=== PATIENT | male | born 1950 | race Caucasian/White ===

== ENCOUNTER 2023-03-03 07:59 | Inpatient (IN) | payer MEDICARE, OTHER, SELFPAY ==
[2023-03-03] VITALS (28 sets, daily range): BP systolic 75–144; BP diastolic 48–95; PULSE 74–118; RESP 15–26; TEMP 36.8–36.9; O2SAT 90–98; BMI 35.9; BMI 41.1
--- NOTE | 2023-03-03 08:03 | HMH.EDGENADL ---
Discharge Plan Disposition Chief Complaint: PAIN Prescriptions Prescriptions: No Action carvedilol [Coreg] 12.5 mg Tablet 12.5 mg PO BID Rx Instructions: must administer with a meal/food trazodone 50 mg Tablet 50 mg PO HS spironolactone 25 mg Tablet 25 mg PO DAILY glipizide 2.5 mg Tablet Extended Release 24hr 2.5 mg PO DAILY aspirin 81 mg Tablet,Chewable 81 mg PO DAILY rosuvastatin [Crestor] 40 mg Tablet 40 mg PO DAILY Eliquis 5 mg Tablet 5 mg PO BID Jardiance 10 mg Tablet 10 mg PO DAILY Entresto 97-103 mg Tablet 1 tab PO BID tramadol 100 mg Tablet 100 mg PO HS Referrals Follow up/Referrals: Kellie Khalil MD [Primary Care Provider] - See instructions Clinical Impressions Clinical Impression: Acute pyelonephritis, Left nephrolithiasis Sepsis Qualifiers: Sepsis type: sepsis due to unspecified organism Sepsis acute organ dysfunction status: without acute organ dysfunction Qualified Code(s): A41.9 - Sepsis, unspecified organism Discharge ED Provider: Torito Knight General Adult HPI General Chief complaint: PAIN Stated complaint: blood in urine Time Seen by Provider: 03/03/23 08:01 History of Present Illness HPI narrative: 72-year-old male with history of chronic pain on narcotics, CAD, CHF, A-fib on Eliquis, nephrolithiasis status post lithotripsy. Started around 1030 last night, 03/02. Associated with dysuria, abdominal pain, left-sided flank pain. No fevers or chills, nausea or vomiting. Patient shortly thereafter went to the restroom and noticed there was red blood in the urine. Feels as if he has been urinating more often than usual as well. Pain is mild, does not radiate. Related Data Home Medications Medication Instructions Recorded Confirmed apixaban 5 mg tablet (Eliquis) 5 mg PO BID afib 03/03/23 03/03/23 aspirin 81 mg chewable tablet 81 mg PO DAILY 03/03/23 03/03/23 carvedilol 12.5 mg tablet (Coreg) 12.5 mg PO BID 03/03/23 03/03/23 empagliflozin 10 mg tablet 10 mg PO DAILY 03/03/23 03/03/23 (Jardiance) glipizide 2.5 mg tablet, extended 2.5 mg PO DAILY 03/03/23 03/03/23 release 24 hr rosuvastatin 40 mg tablet (Crestor) 40 mg PO DAILY 03/03/23 03/03/23 sacubitril 97 mg-valsartan 103 mg 1 tab PO BID 03/03/23 03/03/23 tablet (Entresto) spironolactone 25 mg tablet 25 mg PO DAILY 03/03/23 03/03/23 tramadol 100 mg tablet 100 mg PO HS 03/03/23 03/03/23 trazodone 50 mg tablet 50 mg PO HS 03/03/23 03/03/23 Allergies Allergy/AdvReac Type Severity Reaction Status Date / Time oxycodone [From OxyContin] Allergy Verified 03/03/23 08:17 From LORTAB Allergy Unknown Uncoded 05/04/17 14:26 From PERCOCET Allergy Unknown Uncoded 05/04/17 14:26 PFSH [facility] Disclaimer: The information contained in this section may have been updated after the patient was seen, as this information can be updated by other users. Social History Smoking Status: Never smoker alcohol intake: never current occupational status: unemployed Travel in the last 8 weeks: None ROS Obtained: Yes All systems reviewed & no additional complaints except as documented Physical Exam General General appearance: alert and in no apparent distress Head Head exam: atraumatic and normocephalic Eye Eye exam: Present normal appearance, PERRL and EOMI ENT ENT exam: Present mucous membranes moist Neck Neck exam: Present normal inspection, full ROM and trachea midline Respiratory Respiratory exam: Absent respiratory distress, wheezes, stridor, accessory muscle use or prolonged expiratory phase Cardiovascular Cardiovascular exam: Present normal rhythm Abdominal Exam Abdominal exam: Present soft; Absent distention, tenderness, guarding, rebound, rigidity or normal bowel sounds Extremities Exam Extremities exam: Absent edema Neurological Exam Neurological exam: Present alert, oriented X3, CN II-XII intact and normal gait; Absent motor sensory deficit
--- NOTE | 2023-03-03 08:06 | PC.NURSE ---
pt is in room with family and staff at .
--- NOTE | 2023-03-03 08:12 | PC.NURSE ---
Dr. Knight at BS
[2023-03-03 08:16] LABS: Microscopic, Urine URINE MICROSCOPIC (MICROSCOPIC)
[2023-03-03 08:17] LABS: Bilirubin,Urine Negative (Negative); Blood, Urine 3+ (Negative); Glucose,Urine (UA) 3+ (Negative); Ketones,Urine 1+ (Negative); Leukocyte Esterase,Urine 2+ (Negative); Nitrate,Urine POSITIVE (Negative); PH,Urine 6.5 (5.0-8.5); Protein,Urine 3+ (Negative); Specific Gravity, Urine 1.015 (1.005-1.030)
[2023-03-03 08:30] LABS: Basophils % 0.2 % (0.1-2.0); Chloride 104 mmol/L (98-107); Eosinophils # 0.1 K/mm3 (0.0-0.4); Eosinophils % 0.4 % (0.1-12.0); Hemoglobin 17.7 g/dL (14.1-18.0); Lymphocytes # 1.2 K/mm3 (0.7-4.5); Lymphocytes % 6.9 % (10-50); Mean Corpuscular HGB Conc 33.4 g/dL (31.8-35.4); Mean Corpuscular Hemoglobin 30.9 pg (27.0-31.2); Mean Corpuscular Volume 92.6 fl (80-94); Mean Platelet Volume 8.2 fl (7.4-10.4); Monocytes # 1.1 K/mm3 (0.1-1.0); Monocytes % 6.6 % (1.7-9.3); Neutrophils # 14.9 K/mm3 (1.8-7.8); Platelet Count 236 K/mm3 (142-424); Red Blood Count 5.72 M/mm3 (4.60-6.20); Sodium 139 mmol/L (136-145); White Blood Count 17.3 K/mm3 (4.8-10.8)
[2023-03-03 08:31] LABS: Potassium 4.3 mmoL/L (3.5-5.1)
[2023-03-03 08:32] LABS: MANUAL DIFFERENTIAL MANUAL DIFFERENTIAL (MANUAL DIFF)
[2023-03-03 08:33] LABS: Alanine Aminotransferase 36 U/L (12-78); Albumin Level 4.2 g/dl (3.5-5.0); Albumin/Globulin Ratio 1.4 (1.1-1.8); Alkaline Phosphatase 60 U/L (38-126); Anion Gap 15.3 mEq/L (5-15); Aspartate Amino Transferase 35 U/L (17-59); Bilirubin,Total 0.9 mg/dl (0.2-1.3); Blood Urea Nitrogen 15 mg/dl (9-20); Carbon Dioxide 24 mmol/L (22.0-30.0); Creatinine Clearance Estimated 109 mL/min (50-200); Estimated Glomerular Filt Rate 74 ml/min (>60); GFR (African American) 89 ML/MIN (>60); Total Protein,Serum 7.2 g/dl (6.3-8.2)
[2023-03-03 08:34] LABS: Calcium 9.8 mg/dl (8.4-10.2); Glucose 197 mg/dl (74-100)
[2023-03-03 08:48] LABS: RBC,Urine TNTC #/hpf (0-3)
[2023-03-03 08:49] LABS: Bacteria,Urine 1+ /lpf
[2023-03-03 08:56] LABS: Lymphocytes % 6 % (10-50); Monocytes % 7 % (2-9); Neutrophils % 87 % (42-76); Total Cells Counted 100
[2023-03-03 08:58] LABS: Lipase 32 U/L (23-300)
[2023-03-03 08:59] LABS: Platelet Estimate Normal; RBC Morphology Normal
--- NOTE | 2023-03-03 08:59 | PC.NURSE ---
pt was given a cup of ice upon request. call light within reach. family at
[2023-03-03 09:11] LABS: Appearance,Urine Turbid (Clear); Color,Urine Amber (Yellow)
--- NOTE | 2023-03-03 09:22 | PC.NURSE ---
LR STOPPED WHY ROCEPHIN INFUSING
--- NOTE | 2023-03-03 09:39 | PC.NURSE ---
SEPSIS BOLUS RESTARTED
--- NOTE | 2023-03-03 10:04 | CT_ITS ---
FINAL REPORT TECHNIQUE: Axial images through the abdomen and pelvis were performed without contrast. This study was performed with techniques to keep radiation doses as low as reasonably achievable, (ALARA). Individualized dose reduction techniques using automated exposure control or adjustment of mA and/or kV according to the patient's size were employed. CLINICAL HISTORY: L stone suspected FINDINGS: ABDOMEN: There is atelectasis or scar in the lung bases. The heart size is normal. Limited images of the liver are unremarkable. The patient is status post cholecystectomy. The spleen is normal. No adrenal mass is identified. The aorta is normal in caliber. There is no significant free fluid or adenopathy. There is no nephrolithiasis. There is moderate left hydronephrosis and hydroureter secondary to a 14 mm mid left ureteral stone at the L4 level. PELVIS: The appendix is normal. There is bladder wall thickening, likely inflammatory. Small inguinal hernias containing fat are identified. There is no significant free fluid or adenopathy. IMPRESSION: Moderate left hydronephrosis and hydroureter secondary to a mid left ureteral stone. Reviewed, Interpreted and Dictated by Tereso Porter III, MD Transcribed by Alina Angel Authenticated and [facility]
--- NOTE | 2023-03-03 10:08 | PC.NURSE ---
pt to CT by wheelchair
--- NOTE | 2023-03-03 10:15 | PC.NURSE ---
pt back from CT
--- NOTE | 2023-03-03 10:31 | PC.NURSE ---
placed call to [facility] for urology for transfer.
--- NOTE | 2023-03-03 11:02 | PC.NURSE ---
declan from [facility] called. states [facility] does not have an icu bed currently but are wanting him to contact them back in 45 minutes after their huddle, may have a bed then. States he does also have a call out to [facility]- waiting on a call back. notified dr. gilman
--- NOTE | 2023-03-03 11:22 | PC.NURSE ---
Pt provided with sandwich and chips. No other needs voiced. Call light within reach.
--- NOTE | 2023-03-03 11:27 | PC.NURSE ---
pt sitting on the sit of bed with call light within reach.
--- NOTE | 2023-03-03 11:29 | PC.WOUNDNOTE ---
placed call to [facility] for urology, waiting for Dr Kennedy to call back
--- NOTE | 2023-03-03 11:44 | PC.NURSE ---
Dr Knight speaking with Dr Kennedy at [facility]
--- NOTE | 2023-03-03 11:45 | PC.NURSE ---
pt voided per urinal.
--- NOTE | 2023-03-03 12:16 | PC.NURSE ---
[facility]
--- NOTE | 2023-03-03 13:21 | PC.NURSE ---
pt voided per urinal. pt sitting up to chair with call light within reach. Ice water given upon request.
--- NOTE | 2023-03-03 13:38 | PC.NURSE ---
followed up with [facility], they have escalated to house sup and are waiting for discharges to give bed placement.
--- NOTE | 2023-03-03 13:40 | PC.NURSE ---
called for update on pt transfer,given a number for Dr Morrissey to call him directly
--- NOTE | 2023-03-03 14:16 | PC.NURSE ---
Dr Knight speaking with Dr Morrissey
--- NOTE | 2023-03-03 14:21 | PC.NURSE ---
Dr Morrissey will be out of town after today so unable to accept patient.
--- NOTE | 2023-03-03 14:26 | PC.NURSE ---
placed call to [facility], no available icu beds, will put pt on waiting list.
--- NOTE | 2023-03-03 14:35 | PC.NURSE ---
pt lights turned off per request and ice water was given. family at BS
--- NOTE | 2023-03-03 14:42 | PC.NURSE ---
called care management for admission
--- NOTE | 2023-03-03 15:12 | PC.NURSE ---
Attempted to call reports. Nurse unavailable at this time.
--- NOTE | 2023-03-03 15:21 | PC.NURSE ---
Report given to Agustina Judd RN on Med Surg.
--- NOTE | 2023-03-03 15:37 | PC.NURSE ---
arrived to floor from ED by stretcher
--- NOTE | 2023-03-03 16:34 | PC.NURSE ---
Addendum entered by Dayna Judd RN 03/03/23 17:32: [address] Braswell that pt bp is 131/95, drip is unable to be titrated any lower without being stopped, so drip is off at this time. ok per Dr Braswell. Original Note: Pt arrived to unit at 1540, levophed drip infusing at 2mcg. 1630 drip decreased to 1mcg r/t bp 121/62
[2023-03-03 16:37] LABS: Lactic Acid 1.6 mmol/L (0.7-2.1)
[2023-03-03 17:25] LABS: POC Glucose,Bedside 82 (70-110)
--- NOTE | 2023-03-03 18:09 | P.PN_ITS ---
Subjective *Date: 03/03/23 *Time: 18:09 Exam Data for Last 24 hours Vital signs and Labs for Last 24 Hours: Temp Pulse Resp BP Pulse Ox O2 Del Method 98.2 F 86 18 100/74 L 96 Room Air 03/03/23 15:54 03/03/23 18:00 03/03/23 18:00 03/03/23 18:00 03/03/23 18:00 03/03/23 18:00 Laboratory Results - last 24 hr 03/03/23 08:10: WBC 17.3 H, RBC 5.72, Hgb 17.7, Hct 53.0 H, MCV 92.6, MCH 30.9, MCHC 33.4, RDW 14.0, Plt Count 236, MPV 8.2, Neut % (Auto) 86.0 H, Lymph % (Auto) 6.9 L, [place] % (Auto) 6.6, Eos % (Auto) 0.4, Baso % (Auto) 0.2, Neut # (Auto) 14.9 H, Lymph # (Auto) 1.2, [place]pson # (Auto) 1.1 H, Eos # (Auto) 0.1, Baso # (Auto) 0.0, Total Counted 100, Neutrophils % (Manual) 87 H, Lymphocytes % (Manual) 6 L, Monocytes % (Manual) 7, Platelet Estimate Normal, RBC Morphology Normal, Sodium 139, Potassium 4.3, Chloride 104, Carbon Dioxide 24, Anion Gap 15.3 H, BUN 15, Creatinine 1.00, Estimated Creat Clear 109, Estimated GFR 74, Est GFR ( Amer) 89, Glucose 197 H, Calcium 9.8, Total Bilirubin 0.9, AST 35, ALT 36, Alkaline Phosphatase 60, Total Protein 7.2, Albumin 4.2, Globulin 3.0, Albumin/Globulin Ratio 1.4, Lipase 32 03/03/23 10:39: Lactate 2.0 03/03/23 15:55: Lactate 1.6 03/03/23 17:17: POC Glucose 82 03/03/23 : Urine Color Aura, Urine Appearance Turbid, Urine pH 6.5, Ur Specific [place] 1.015, Urine Protein 3+, Urine Glucose (UA) 3+, Urine Ketones 1+, Urine Blood 3+, Urine Nitrate Positive, Urine Bilirubin Negative, Urine Urobilinogen 4.0, Ur Leukocyte Esterase 2+ A, Urine RBC Tntc, Urine WBC 3-5, Ur Squamous Epith Cells None, Urine Bacteria 1+ I & O for Last 24 hours: Intake & Output 02/28/23 03/01/23 03/02/23 03/03/23 23:59 23:59 23:59 23:59 Intake Total 273.672 / 273.672 Output Total 300 / 300 Balance -26.328 / -26.328 Weight 130.181 kg Assessment and Plan *Assessment and plan (1) Sepsis: Status: Acute Qualifiers: Sepsis acute organ dysfunction status: without acute organ dysfunction Sepsis type: sepsis due to unspecified organism Qualified Code(s): A41.9 - Sepsis, unspecified organism Category: Medical Code(s): A41.9 - Sepsis, unspecified organism (2) Left nephrolithiasis: Status: Acute Category: Medical Code(s): N20.0 - Calculus of kidney Plan Patient was transferred to the floor in the afternoon. Multiple calls has been made to transfer the patient to [facility]. Patient was on pressors which have been weaned off, patient is alert oriented x3, not complaining of dizziness or lightheadedness. Spoke to accepting physician at [facility], patient was accepted awaiting bed assignment. Patient will need to be transferred to the ICU. Urgent attempts were made to transfer the patient however [facility] as well as [facility] and long wait times, every attempt was made to transfer the patient, patient is on a waiting list at several different hospitals, patient was discharged with urologist at [facility] who accepted patient. Patient agrees with the transfer plan.
--- NOTE | 2023-03-03 18:17 | EXP.HP ---
History of Present Illness *Admission Date: 03/03/23 *Reason for visit:: Left flank pain *History of present illness: Patient is a 72-year-old male with past medical history of atrial fibrillation, nephrolithiasis who presents to the hospital due to left-sided flank pain. Patient mentions his left flank pain is started last night, it is associated with blood in the urine, he denies associated fever or chills. Patient had CT abdomen pelvis which did show left-sided ureteral stone with hydronephrosis. ED tried to transfer patient to nearby hospitals however patient after 6 hours being in ED patient was transferred to my service and hospitalist. Patient denies fevers chills diarrhea constipation dysuria however he mentioned he had frequency urination PFSH PFS Disclaimer: The information contained in this section may have been updated after the patient was seen, as this information can be updated by other users. Medical History (Updated 03/03/23 @ 16:25 by Marta Angela RN) Atrial fibrillation Congestive heart failure History of left heart catheterization (LHC) History of stroke Hyperlipidemia Hypertension Kidney stone Surgical History (Updated 03/03/23 @ 16:25 by Marta Angela, ANURAG) H/O lateral meniscus repair of left knee History of cholecystectomy History of knee replacement History of lithotripsy Family History (Updated 03/03/23 @ 16:24 by Marta Angela RN) Other No significant family history Social History (Updated 03/03/23 @ 16:26 by Marta Angela RN) Smoking Status: Never smoker alcohol intake: never current occupational status: unemployed Travel in the last 8 weeks: None Review of Systems Review of Systems Review of systems (narrative): As per HPI Meds Home Medications and Allergies Home Medications Medication Instructions Recorded Confirmed Type apixaban 5 mg tablet (Eliquis) 5 mg PO BID afib 03/03/23 03/03/23 History aspirin 81 mg chewable tablet 81 mg PO DAILY 03/03/23 03/03/23 History carvedilol 12.5 mg tablet (Coreg) 12.5 mg PO BID 03/03/23 03/03/23 History empagliflozin 10 mg tablet 10 mg PO DAILY 03/03/23 03/03/23 History (Jardiance) glipizide 2.5 mg tablet, extended 2.5 mg PO DAILY 03/03/23 03/03/23 History release 24 hr rosuvastatin 40 mg tablet (Crestor) 40 mg PO DAILY 03/03/23 03/03/23 History sacubitril 97 mg-valsartan 103 mg 1 tab PO BID 03/03/23 03/03/23 History tablet (Entresto) spironolactone 25 mg tablet 25 mg PO DAILY 03/03/23 03/03/23 History tramadol 100 mg tablet 100 mg PO HS 03/03/23 03/03/23 History trazodone 50 mg tablet 50 mg PO HS 03/03/23 03/03/23 History New Prescriptions to Start Prescriptions: Allergies Allergy/AdvReac Type Severity Reaction Status Date / Time oxycodone [From OxyContin] Allergy Verified 03/03/23 15:43 From LORTAB Allergy Unknown Uncoded 05/04/17 14:26 From PERCOCET Allergy Unknown Uncoded 05/04/17 14:26 Exam Data for Last 24 hours Vital signs and Labs for Last 24 Hours: Temp Pulse Resp BP Pulse Ox O2 Del Method 98.2 F 86 18 100/74 L 96 Room Air 03/03/23 15:54 03/03/23 18:00 03/03/23 18:00 03/03/23 18:00 03/03/23 18:00 03/03/23 18:00 Laboratory Results - last 24 hr 03/03/23 08:10: WBC 17.3 H, RBC 5.72, Hgb 17.7, Hct 53.0 H, MCV 92.6, MCH 30.9, MCHC 33.4, RDW 14.0, Plt Count 236, MPV 8.2, Neut % (Auto) 86.0 H, Lymph % (Auto) 6.9 L, [place] % (Auto) 6.6, Eos % (Auto) 0.4, Baso % (Auto) 0.2, Neut # (Auto) 14.9 H, Lymph # (Auto) 1.2, [place] # (Auto) 1.1 H, Eos # (Auto) 0.1, Baso # (Auto) 0.0, Total Counted 100, Neutrophils % (Manual) 87 H, Lymphocytes % (Manual) 6 L, Monocytes % (Manual) 7, Platelet Estimate Normal, RBC Morphology Normal, Sodium 139, Potassium 4.3, Chloride 104, Carbon Dioxide 24, Anion Gap 15.3 H, BUN 15, Creatinine 1.00, Estimated Creat Clear 109, Estimated GFR 74, Est GFR ( Amer) 89, Glucose 197 H, Calcium 9.8, Total Bilirubin 0.9, AST 35, ALT 36, Alkaline Phosph
--- NOTE | 2023-03-03 18:27 | PC.NURSE ---
pt states that zofran has not helped his bloating and abd discomfort. [address] Braswell. to enter order for Simethicone at this time
--- NOTE | 2023-03-03 19:29 | PC.NURSE ---
Notified had a bed assignment for the pt. Pt will be going to room 21 in the SICU.
--- NOTE | 2023-03-03 19:44 | EXP.DC.SUM ---
General Admission date:: 03/03/23 HPI HPI HPI: Patient is a 72-year-old male with past medical history of atrial fibrillation, nephrolithiasis who presents to the hospital due to left-sided flank pain. Patient mentions his left flank pain is started last night, it is associated with blood in the urine, he denies associated fever or chills. Patient had CT abdomen pelvis which did show left-sided ureteral stone with hydronephrosis. ED tried to transfer patient to nearby hospitals however patient after 6 hours being in ED patient was transferred to my service and hospitalist. Patient denies fevers chills diarrhea constipation dysuria however he mentioned he had frequency urination Hospital Course Hospital Course Hospital Course: Patient is a 72-year-old male with past medical history of atrial fibrillation, nephrolithiasis who presents to the hospital due to left-sided flank pain. Patient mentions his left flank pain is started last night, it is associated with blood in the urine, he denies associated fever or chills. Patient had CT abdomen pelvis which did show left-sided ureteral stone with hydronephrosis. ED tried to transfer patient to nearby hospitals however patient after 6 hours being in ED patient was transferred to my service and hospitalist. Patient denies fevers chills diarrhea constipation dysuria however he mentioned he had frequency urination Assessment Septic shock present on admission Severe sepsis Atrial fibrillation Left-sided nephrolithiasis Plan Started on IV Levophed, wean as tolerated IV vancomycin, Zosyn, IV fluids Patient has been accepted at several different hospitals including but not limited to [facility], [facility], [facility], [facility]. Patient is on a waiting list for transfer to ICU Continue to monitor on cardiac telemetry Pain control DVT prophylaxis-SCDs for now called w/ bed. Pt being transferred to ICU @ for urology consult and ICU for sepsis requiring levophed Exam Data for Last 24 hours Vital signs and Labs for Last 24 Hours: Temp Pulse Resp BP Pulse Ox O2 Del Method 98.2 F 80 20 120/60 92 L Room Air 03/03/23 15:54 03/03/23 19:00 03/03/23 19:00 03/03/23 19:00 03/03/23 19:00 03/03/23 19:00 Laboratory Results - last 24 hr 03/03/23 08:10: WBC 17.3 H, RBC 5.72, Hgb 17.7, Hct 53.0 H, MCV 92.6, MCH 30.9, MCHC 33.4, RDW 14.0, Plt Count 236, MPV 8.2, Neut % (Auto) 86.0 H, Lymph % (Auto) 6.9 L, [place] % (Auto) 6.6, Eos % (Auto) 0.4, Baso % (Auto) 0.2, Neut # (Auto) 14.9 H, Lymph # (Auto) 1.2, [place] # (Auto) 1.1 H, Eos # (Auto) 0.1, Baso # (Auto) 0.0, Total Counted 100, Neutrophils % (Manual) 87 H, Lymphocytes % (Manual) 6 L, Monocytes % (Manual) 7, Platelet Estimate Normal, RBC Morphology Normal, Sodium 139, Potassium 4.3, Chloride 104, Carbon Dioxide 24, Anion Gap 15.3 H, BUN 15, Creatinine 1.00, Estimated Creat Clear 109, Estimated GFR 74, Est GFR ( Amer) 89, Glucose 197 H, Calcium 9.8, Total Bilirubin 0.9, AST 35, ALT 36, Alkaline Phosphatase 60, Total Protein 7.2, Albumin 4.2, Globulin 3.0, Albumin/Globulin Ratio 1.4, Lipase 32 03/03/23 10:39: Lactate 2.0 03/03/23 15:55: Lactate 1.6 03/03/23 17:17: POC Glucose 82 03/03/23 : Urine Color Aura, Urine Appearance Turbid, Urine pH 6.5, Ur Specific [place] 1.015, Urine Protein 3+, Urine Glucose (UA) 3+, Urine Ketones 1+, Urine Blood 3+, Urine Nitrate Positive, Urine Bilirubin Negative, Urine Urobilinogen 4.0, Ur Leukocyte Esterase 2+ A, Urine RBC Tntc, Urine WBC 3-5, Ur Squamous Epith Cells None, Urine Bacteria 1+ I & O for Last 24 hours: Intake & Output 02/28/23 03/01/23 03/02/23 03/03/23 23:59 23:59 23:59 23:59 Intake Total 273.672 / 273.672 Output Total 300 / 300 Balance -26.328 / -26.328 Weight 130.181 kg Constitutional Constitutional: obese *Routine HEENT Exam Head: Present normocephalic Eye: Present EOMI ENT: Present mucous membranes moist *Routine
--- NOTE | 2023-03-03 19:48 | PC.NURSE ---
Called and gave report to ANURAG Turk at at this time.
[2023-03-04] VITALS: BP 98/54; PULSE 100; PULSE 79; RESP 22; TEMP 37; O2SAT 95
[2023-03-04 01:00] VITALS: BP 137/78; PULSE 57; RESP 19; O2SAT 92
--- NOTE | 2023-03-04 03:43 | PC.NURSE ---
Pt left floor with ems staff at 0134
--- NOTE | 2023-03-11 13:49 | PC.NURSE ---
called last date when received culture results on pt (blood and urine). states pt has been d/c from their facility. Attempted to make contqact with pt, no answer. Was trying to see if pt was d/c on antibiotics. Spoke with Dr. Dean r/t culture results today, no new orders obtained for pt at this time.
--- NOTE | 2023-03-15 13:29 | PC.NURSE ---
blood results were micrococcus luteus/cutibacteruim acnes, pt given ceftriazone 1 g in ER before transfer to [facility] for septic stone. MD Morgan no action needed at this time.
== END 2023-03-04 01:36 | disposition short-term general hospital (02) | DRG 871 ==
LOC: ER 08:27 → 2ND 14:54
PROVIDERS: Admitting Provider Internal Medicine; Emergency Provider Emergency Medicine; PCP Family Medicine; Visit Provider Internal Medicine
DX: A41.9 Sepsis, unspecified organism (principal); R65.21 Severe sepsis with septic shock; N13.6 Pyonephrosis; Z79.84 Long term (current) use of oral hypoglycemic drugs; I48.91 Unspecified atrial fibrillation; Z79.01 Long term (current) use of anticoagulants; G89.29 Other chronic pain; Z87.442 Personal history of urinary calculi; E78.5 Hyperlipidemia, unspecified; Z86.73 Personal history of transient ischemic attack (TIA), and cerebral infarction without residual deficits; I50.9 Heart failure, unspecified; I11.0 Hypertensive heart disease with heart failure
CPT/HCPCS: 74176; 80053; 81001; 82962; 83605; 83690; 85007; 85025; 87040; 87086; J0696; J2405; J2543; J3370